=== PATIENT | female | born 1950 | race Caucasian/White ===

== ENCOUNTER 2021-04-03 16:03 | Emergency (ER) | payer MEDICARE, OTHER ==
[~2021-04-03] VITALS: Ht 149.9 cm; Wt 72.2 kg
[2021-04-03 16:53] LABS: BASOPHILS % 0.3 % (0.0-1.0); EOSINOPHILS # (AUTO) 0.1 (0.0-0.4); EOSINOPHILS % 1.5 % (0.0-6.0); HEMATOCRIT 39.6 % (34.2-44.1); HEMOGLOBIN 12.6 g/dL (12.0-16.0); LYMPHOCYTES % 27.1 % (18.0-39.1); MEAN CORPUSCULAR HEMOGLOBIN 29.6 pg (28-32); MEAN CORPUSCULAR HGB CONC 31.8 g/dL (31-35); MEAN CORPUSCULAR VOLUME 93.2 fL (81-99); MONOCYTES # (AUTO) 0.6 (0.2-0.8); MONOCYTES % 8.7 % (4.4-11.3); NEUTROPHILS # (AUTO) 4.6 (2.1-6.9); NEUTROPHILS % 62.1 % (38.7-80.0); PLATELET COUNT 138 x10e3/uL (140-360); RED BLOOD COUNT 4.25 x10e6/uL (3.6-5.1); RED CELL DISTRIBUTION WIDTH 14.1 % (11.7-14.4)
[2021-04-03 17:02] LABS: INR 0.99; PROTHROMBIN TIME 13.7 seconds (11.9-14.5)
[2021-04-03 17:03] LABS: PARTIAL THROMBOPLASTIN TIME 34.9 seconds (23.8-35.5)
[2021-04-03 17:59] LABS: ALANINE AMINOTRANSFERASE 15 IU/L (0-55); ALBUMIN 4.2 g/dL (3.5-5.0); ALBUMIN/GLOBULIN RATIO 1.3 (0.8-2.0); ALKALINE PHOSPHATASE 75 IU/L (40-150); ANION GAP 15.3 mmol/L (8-16); BLOOD UREA NITROGEN 17 mg/dL (7-26); BUN/CREATININE RATIO 18 (6-25); CALCIUM 9.9 mg/dL (8.4-10.2); CARBON DIOXIDE 26 mmol/L (22-29); CHLORIDE 105 mmol/L (98-107); CREATINE KINASE 48 IU/L (29-168); CREATININE, SERUM 0.95 mg/dL (0.57-1.11); EST GLOMERULAR FILTRATION RATE 58 ML/MIN (60-); GLUCOSE 93 mg/dL (74-118); POTASSIUM 4.3 mmol/L (3.5-5.1); SODIUM 142 mmol/L (136-145)
[2021-04-03 18:51] VITALS: BP 129/78
== END 2021-04-03 19:01 | disposition home or self-care (01) ==
LOC: ER 17:30
DX: L03.116 Cellulitis of left lower limb (principal); L03.115 Cellulitis of right lower limb; R60.9 Edema, unspecified; F31.9 Bipolar disorder, unspecified; Z96.612 Presence of left artificial shoulder joint; Z86.718 Personal history of other venous thrombosis and embolism; F17.210 Nicotine dependence, cigarettes, uncomplicated
CPT/HCPCS: 36415; 71045; 80053; 82550; 82553; 84484; 85025; 85610; 85730; 93005; 93970; 99284; U0002

== ENCOUNTER 2022-02-22 14:32 | Observation (INO) | payer MEDICARE, OTHER ==
[~2022-02-22] VITALS: Ht 165.1 cm; Wt 68.0 kg
[2022-02-22] MEDS ORDERED: SODIUM CHLORIDE 0.9% 1000ML 1,000 ML IV STA (15:05)
[2022-02-22] MEDS ORDERED: HYDROCODONE/APAP 10MG-325MG TAB PO ONE (15:45)
[2022-02-22] MEDS ORDERED: Vancomycin IV 1 GM in SODIUM CHLORIDE 0.9% 250ML 250 ML IV ONE (15:45)
[2022-02-22] MEDS ORDERED: ONDANSETRON HCL INJ 2MG/ML 2ML 2 MG/ML VIAL IV PRN (16:45)
[2022-02-22 16:53] LABS: BASOPHILS % 0.5 % (0.0-1.0); EOSINOPHILS # (AUTO) 0.1 (0.0-0.4); EOSINOPHILS % 3.4 % (0.0-6.0); HEMATOCRIT 38.5 % (34.2-44.1); HEMOGLOBIN 12.2 g/dL (12.0-16.0); LYMPHOCYTES # (AUTO) 1.4 (1.0-3.2); LYMPHOCYTES % 32.8 % (18.0-39.1); MEAN CORPUSCULAR HEMOGLOBIN 31.9 pg (28-32); MEAN CORPUSCULAR HGB CONC 31.7 g/dL (31-35); MEAN CORPUSCULAR VOLUME 100.8 fL (81-99); MONOCYTES # (AUTO) 0.4 (0.2-0.8); MONOCYTES % 10.7 % (4.4-11.3); NEUTROPHILS # (AUTO) 2.1 (2.1-6.9); NEUTROPHILS % 52.1 % (38.7-80.0); PLATELET COUNT 105 x10e3/uL (140-360); RED BLOOD COUNT 3.82 x10e6/uL (3.6-5.1); RED CELL DISTRIBUTION WIDTH 12.7 % (11.7-14.4)
[2022-02-22 17:05] LABS: INR 0.92; PARTIAL THROMBOPLASTIN TIME 28.6 seconds (23.8-35.5); PROTHROMBIN TIME 13.2 seconds (11.9-14.5)
[2022-02-22 17:13] LABS: ALANINE AMINOTRANSFERASE 9 IU/L (0-55); ALBUMIN 3.2 g/dL (3.5-5.0); ALBUMIN/GLOBULIN RATIO 0.9 (0.8-2.0); ALKALINE PHOSPHATASE 48 IU/L (40-150); ANION GAP 13.7 mmol/L (8-16); BLOOD UREA NITROGEN 8 mg/dL (7-26); BUN/CREATININE RATIO 11 (6-25); CALCIUM 8.5 mg/dL (8.4-10.2); CARBON DIOXIDE 27 mmol/L (22-29); CHLORIDE 102 mmol/L (98-107); CREATINE KINASE 27 IU/L (29-168); CREATININE, SERUM 0.72 mg/dL (0.57-1.11); EST GLOMERULAR FILTRATION RATE 80 ML/MIN (60-); GLUCOSE 76 mg/dL (74-118); MAGNESIUM 1.5 MG/DL (1.3-2.1); POTASSIUM 3.7 mmol/L (3.5-5.1); SODIUM 139 mmol/L (136-145)
[2022-02-22] MEDS: SODIUM CHLORIDE 0.9% 1000ML 1,000 ML IV SCH ×2 (18:05→22:57)
[2022-02-22 19:30] VITALS: BP 131/82
[2022-02-22 20:00] VITALS: BP 131/82
[2022-02-22] MEDS: HYDROCODONE/APAP 10MG-325MG TAB PO PRN (22:58)
[2022-02-22] MEDS ORDERED: TRAZODONE HCL150 MG PO (23:47)
[2022-02-22] MEDS ORDERED: HYDROCODON-ACE1 EAC9 PO (23:51)
[2022-02-22] MEDS ORDERED: ELIQUIS5 MG PO (23:53)
[2022-02-22] MEDS ORDERED: PROTONIX20 MG PO (23:55)
[2022-02-23] VITALS (8 sets, daily range): BP systolic 115–141; BP diastolic 57–76
[2022-02-23 01:23] LABS: CREATINE KINASE 20 IU/L (29-168)
[2022-02-23] MEDS: HYDROCODONE/APAP 10MG-325MG TAB PO PRN ×3 (05:40→18:44)
[2022-02-23 05:52] LABS: ALBUMIN 2.8 g/dL (3.5-5.0); ANION GAP 11.7 mmol/L (8-16); CALCIUM 7.9 mg/dL (8.4-10.2); CREATININE, SERUM 0.65 mg/dL (0.57-1.11); POTASSIUM 3.7 mmol/L (3.5-5.1)
[2022-02-23 06:17] LABS: CREATINE KINASE 24 IU/L (29-168)
[2022-02-23 08:49] LABS: BASOPHILS % 0.3 % (0.0-1.0); EOSINOPHILS # (AUTO) 0.1 (0.0-0.4); EOSINOPHILS % 3.9 % (0.0-6.0); HEMOGLOBIN 10.8 g/dL (12.0-16.0); LYMPHOCYTES # (AUTO) 1.2 (1.0-3.2); LYMPHOCYTES % 37.1 % (18.0-39.1); MEAN CORPUSCULAR HGB CONC 31.8 g/dL (31-35); MEAN CORPUSCULAR VOLUME 100.6 fL (81-99); MONOCYTES # (AUTO) 0.4 (0.2-0.8); MONOCYTES % 12.3 % (4.4-11.3); NEUTROPHILS # (AUTO) 1.4 (2.1-6.9); NEUTROPHILS % 46.1 % (38.7-80.0); PLATELET COUNT 91 x10e3/uL (140-360); RED BLOOD COUNT 3.38 x10e6/uL (3.6-5.1); RED CELL DISTRIBUTION WIDTH 12.8 % (11.7-14.4)
[2022-02-23] MEDS ORDERED: PANTOPRAZOLE SOD 40 MG TABEC PO ONE (11:30)
[2022-02-23 14:05] LABS: CREATINE KINASE 14 IU/L (29-168)
[2022-02-23] MEDS: SODIUM CHLORIDE 0.9% 1000ML 1,000 ML IV SCH (18:02)
[2022-02-23] MEDS ORDERED: TRAZODONE HCL 50 MG TAB PO PRN (19:45)
[2022-02-24] VITALS: BP 140/79
[2022-02-24] MEDS: HYDROCODONE/APAP 10MG-325MG TAB PO PRN ×2 (00:54→06:50)
[2022-02-24 04:00] VITALS: BP 144/66
[2022-02-24 07:47] VITALS: BP 144/66
[2022-02-24 08:06] VITALS: BP 133/73
[2022-02-24] MEDS ORDERED: ONDANSETRON HCL 4 MG ORAL DISINTEGRATING TAB PO PRN (10:15)
[2022-02-24] MEDS ORDERED: CLEOCIN HCL300 MG PO (11:21)
[2022-02-24] MEDS ORDERED: CELEBREX100 MG PO (11:21)
[2022-02-24] MEDS ORDERED: NEURONTIN100 MG PO (11:22)
[2022-02-24 12:09] VITALS: BP 130/61
== END 2022-02-24 15:06 | disposition home or self-care (01) ==
LOC: ER 14:40 → INTOOBSV 16:47 → ERHOLD 16:47 → MED/SURG2 19:27
PROVIDERS: ADMIT Internal Medicine; ATTEND Internal Medicine
DX: S93.402A Sprain of unspecified ligament of left ankle, initial encounter (principal); Z74.09 Other reduced mobility; Z20.822 Contact with and (suspected) exposure to COVID-19; L03.115 Cellulitis of right lower limb; W10.9XXA Fall (on) (from) unspecified stairs and steps, initial encounter
CPT/HCPCS: 36415; 73590; 73610; 80053 ×2; 82550 ×2; 82553 ×2; 83735; 84484 ×2; 85025 ×2; 85610; 85730; 87040; 93971; 94799 ×2; 97161; 97530 ×2; 99284; G0378 ×3; J2543 ×3; J3370; J7030 ×2; J7050; S0164; U0002

== ENCOUNTER 2023-03-09 07:06 | Emergency (ER) | payer MEDICARE, OTHER ==
[~2023-03-09] VITALS: Ht 165.1 cm; Wt 68.0 kg
[~2023-03-09 07:06] MED LIST: CELEBREX100 MG PO; CLEOCIN HCL300 MG PO; ELIQUIS5 MG PO; HYDROCODON-ACE1 EAC9 PO; NEURONTIN100 MG PO; PROTONIX20 MG PO; TRAZODONE HCL150 MG PO
[2023-03-09] MEDS ORDERED: SODIUM CHLORIDE 0.9% 1000ML 1,000 ML IV STA (07:35)
[2023-03-09 07:52] LABS: BASOPHILS % 0.4 % (0.0-1.0); EOSINOPHILS # (AUTO) 0.1 (0.0-0.4); EOSINOPHILS % 2.2 % (0.0-6.0); HEMATOCRIT 40.5 % (34.2-44.1); HEMOGLOBIN 13.4 g/dL (12.0-16.0); LYMPHOCYTES # (AUTO) 1.8 (1.0-3.2); LYMPHOCYTES % 36.2 % (18.0-39.1); MEAN CORPUSCULAR HEMOGLOBIN 32.5 pg (28-32); MEAN CORPUSCULAR HGB CONC 33.1 g/dL (31-35); MEAN CORPUSCULAR VOLUME 98.3 fL (81-99); MONOCYTES # (AUTO) 0.4 (0.2-0.8); MONOCYTES % 8.3 % (4.4-11.3); NEUTROPHILS # (AUTO) 2.7 (2.1-6.9); NEUTROPHILS % 52.7 % (38.7-80.0); PLATELET COUNT 154 x10e3/uL (140-360); RED BLOOD COUNT 4.12 x10e6/uL (3.6-5.1)
[2023-03-09 08:04] LABS: INR 0.9; PROTHROMBIN TIME 12.7 seconds (11.9-14.5)
[2023-03-09 08:06] LABS: CLARITY,URINE CLOUDY (CLEAR); COLOR,URINE YELLOW (YELLOW)
[2023-03-09 08:07] LABS: KETONES,URINE NEGATIVE (NEGATIVE); LEUKOCYTE ESTERASE ,URINE SMALL (NEGATIVE); NITRITE,URINE NEGATIVE (NEGATIVE); PROTEIN,URINE DIPSTICK NEGATIVE (NEGATIVE); URINE UROBILINOGEN 0.2 mg/dL (0.2 - 1)
[2023-03-09 08:15] LABS: ALANINE AMINOTRANSFERASE 15 IU/L (0-55); ALBUMIN 4.3 g/dL (3.5-5.0); ALBUMIN/GLOBULIN RATIO 1.4 (0.8-2.0); ALKALINE PHOSPHATASE 50 IU/L (40-150); BLOOD UREA NITROGEN 10 mg/dL (7-26); BUN/CREATININE RATIO 14 (6-25); CALCIUM 9.6 mg/dL (8.4-10.2); CARBON DIOXIDE 27 mmol/L (22-29); CHLORIDE 104 mmol/L (98-107); CREATINE KINASE 46 IU/L (29-168); CREATININE, SERUM 0.73 mg/dL (0.57-1.11); GLUCOSE 102 mg/dL (74-118); MAGNESIUM 1.7 MG/DL (1.3-2.1); SODIUM 140 mmol/L (136-145)
[2023-03-09 08:28] LABS: BACTERIA,URINE MANY /HPF; EPITHELIAL CELLS,URINE FEW /LPF; RBC,URINE >50 /HPF (0-5); WBC,URINE (MAN) 0-5 /HPF (0-5)
[2023-03-09 08:34] LABS: THYROID STIMULATING HORMONE 1.767 uIU/mL (0.350-4.940)
[2023-03-09] MEDS ORDERED: IOPAMIDOL 370 MG/ML 100 ML INFUS..BTL INJ ONE (08:48)
[2023-03-09] MEDS ORDERED: CIPRO250 MG PO (09:41)
[2023-03-09 10:12] VITALS: O2SAT 100
== END 2023-03-09 10:14 | disposition home or self-care (01) ==
LOC: ER 07:13
DX: R31.9 Hematuria, unspecified (principal); N39.0 Urinary tract infection, site not specified; R10.32 Left lower quadrant pain; K21.9 Gastro-esophageal reflux disease without esophagitis; F32.A Depression, unspecified; Z20.822 Contact with and (suspected) exposure to COVID-19; Z86.718 Personal history of other venous thrombosis and embolism
CPT/HCPCS: 0223U; 36415; 71045; 74177; 80053; 81001; 82550; 82553; 83735; 84443; 84484; 85025; 85610; 85730; 87086; 87186; 99284; C9113; J7030; Q9967